=== PATIENT | male | born 1970 | race Caucasian/White ===

== ENCOUNTER 2021-07-15 10:52 | Emergency (ER) | payer OTHER ==
[~2021-07-15 10:52] MED LIST: BENTYL 20MG TAB20 MG PO; COLACE100 MG PO; NAPROXEN500 MG PO; NORCO 7.5-3251 EACH PO
[2021-07-15] MEDS ORDERED: ERYTHROMYCIN O3.5 GM EYERT (12:31)
== END 2021-07-15 12:43 | disposition home or self-care (01) ==
LOC: ER1 10:52
DX: T15.01XA Foreign body in cornea, right eye, initial encounter (principal); I10 Essential (primary) hypertension; F17.200 Nicotine dependence, unspecified, uncomplicated
CPT/HCPCS: 65220; 99282